=== PATIENT | female | born 1995 | race Two or more races ===

== ENCOUNTER → 2024-05-12 | Outpatient (REF) | LOC: M EMP 12:07 | PROVIDERS: ATTEND Family Medicine | DX: Z11.52 Encounter for screening for COVID-19 (principal) ==

== ENCOUNTER → 2024-06-27 | Outpatient (REF) | LOC: M EMP 08:54 | PROVIDERS: ATTEND Family Medicine | DX: Z11.52 Encounter for screening for COVID-19 (principal) ==